=== PATIENT | female | born 1970 | race Caucasian/White ===

== ENCOUNTER 2016-07-15 16:12 | Emergency (ER) | payer OTHER ==
[~2016-07-15] VITALS: Ht 160 cm; Wt 77.1 kg
[~2016-07-15 16:12] MED LIST: BENZONATATE200 MG PO; BUPROPION HYDR150 M1 PO; CEPHALEXIN500 MG PO; CITALOPRAM HYDR20 MG PO; SUBOXONE 8 MG-21 TAB PO; ZOLPIDEM TARTRA10 MG PO
--- NOTE | 2016-07-15 16:45 | ED HAND/WRIST INJURY COMPLAINT ---
History of Present Illness General Chief Complaint: Upper Extremity Injury Stated Complaint: RT ARM PAIN Source: patient Exam Limitations: no limitations Vital Signs & Intake/Output Vital Signs & Intake/Output Vital Signs Date Time Temp Pulse Resp B/P Pulse O2 O2 Flow FiO2 Ox Delivery Rate 07/15 1913 98.0 82 16 118/72 07/15 1802 Room Air 07/15 1622 98.0 07/15 1616 98.0 83 16 130/87 98 Room Air Allergies Coded Allergies: Sulfa (Sulfonamide Antibiotics) (HIVES 07/15/16) naproxen (From ANAPROX) (HIVES, DYSPNEA 07/15/16) Reconcile Medications Citalopram Hydrobromide (Citalopram HBr) 20 MG TAB 1 TAB PO DAILY ANXIETY ( Reported) Eszopiclone (Lunesta) 2 MG TABLET 1 TAB PO QPM SLEEP (Reported) Ibuprofen 800 MG TABLET 1 TAB PO TID pain Triage Note: PT STATES HER RIGHT ARM GOT CAUGHT BETWEEN A WOODEN RABBIT CAGE AND THE RAILING OF THEIR DECK. PT HAS PAIN AND SWELLING. PT HAS ICE PACK TO AREA. Triage Nurses Notes Reviewed? yes Occurred: just prior to arrival Duration: hour(s):, constant, continues in ED Timing: recent history Injury Environment: home Severity: moderate, severe Pain/Injury Location: Right: Wrist. No Modifying Factors: none : No Patient currently breastfeeds: No HPI: 46-year-old female comes into emergency room with complaints of right wrist pain. Symptoms of a going on for the past few hours. Sharp throbbing pain. Wrist caught between the deck in a cage when they were lifting it. Associated swelling. Denies any injury anywhere else. Denies any other associated symptoms. (DOLORES CHING) Past History Travel History Traveled to [place] past 21 day No Medical History Any Pertinent Medical History? 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 No (DOLORES CHING) Review of Systems Review of Systems Constitutional: Reports: no symptoms. EENTM: Reports: no symptoms. Respiratory: Reports: no symptoms. Cardiovascular: Reports: no symptoms. GI: Reports: no symptoms. Genitourinary: Reports: no symptoms. Musculoskeletal: Reports: see HPI. Skin: Reports: no symptoms. Neurological/Psychological: Reports: no symptoms. Hematologic/Endocrine: Reports: no symptoms. Immunologic/Allergic: Reports: no symptoms. All Other Systems: Reviewed and Negative (DOLORES CHING) Physical Exam Physical Exam General Appearance: well developed/nourished Head: atraumatic Eyes: Bilateral: normal appearance. Ears, Nose, Throat: normal ENT inspection, hearing grossly normal Neck: normal inspection Cardiovascular/Respiratory: no respiratory distress Back: normal inspection Wrist Right: bone tenderness, limited range of motion Hand Left: normal inspection Hand Right: normal inspection, normal range of motion Neurologic/Tendon: normal sensation, normal motor functions, normal tendon functions Skin: intact, normal color, warm/dry Lymphatic: no anterior cervical zac (DOLORES CHING) Progress Differential Diagnosis: dislocation, fracture, paronychia, septic arthritis, sprain, tenosynovitis Plan of Care: Orders Procedure Date/time Status Durable Medical Equipment 07/15 1904 Active Diagnostic Imaging: Viewed by Me: Radiology Read. Discussed w/RAD: Radiology Read. Radiology Impression: EXAM TYPE: RAD - XRY-FOREARM, RIGHT EXAMINATION: XR FOREARM, RIGHT CLINICAL INFORMATION: Recent injury, pain and swelling COMPARISON : None TECHNIQUE: AP and lateral views of the right forearm were obtained. FINDINGS: There is a transverse lucent line through the distal ulnar styloid process with adjacent soft tissue swelling. This could represent a nondisplaced acute fracture. No other acute fractures seen. No radiodense foreign body. IMPRESSION: Possible linear nondisplaced fracture of distal ulnar styloid process. Clinical correlation is advised., SERVICE DATE: 07/15/16 EXAM TYPE: RAD - XRY-WRIST COMPLETE-RIGHT EXAMINATION: XR WRIST, RIGHT CLINICAL INFORMATION: Pain. Assess for fracture COMPARISON: None TECHNIQUE: 4 of the right wrist. FINDINGS: The bones and soft tissues are normal. No fracture. There is high-grade subluxation/dislocation of the distal radioulnar joint. Correlate clinically.. No erosions or abnormal soft tissue calcifications. IMPRESSION: No fracture. Disruption of the distal radial ulnar joint uncertain chronicity. Correlate clinically. DICTATED BY: DANA COBB MD DATE/TIME DICTATED:07/15/161748 LOAN ADVISER:DERRICK DATE/TIME TRANSCRIBED:07/15/161748 CONFIDENTIAL, DO NOT COPY WITHOUT APPROPRIATE AUTHORIZA, EXAM TYPE: RAD - XRY- ELBOW 3 OR MORE VIEWS, R EXAMINATION: XR ELBOW, RIGHT CLINICAL INFORMATION: Pain. COMPARISON: None TECHNIQUE: 4 of the right elbow. FINDINGS: No effusion. Radial head intact. Alignment is anatomic. Joint spaces are maintained. IMPRESSION: No fracture or dislocation. (DOLORES CHING) Departure Departure Disposition: HOME OR SELF CARE Condition: Stable Clinical Impression Primary Impression: Right wrist sprain Referrals: TY GRANGER,RAZ Sommers (PCP/Family) [facility] CABRAL MD Additional Instructions: Ice. Rest. Motrin for pain. Elevation. Follow-up with orthopedic doctor provided if not better in 3-5 days. If symptoms do not improve you'll require further evaluation with possible repeat x-rays as well as evaluation by refractory specialist. Sprains can last anywhere from days to weeks. Return to normal activity only after symptoms have resolved. Departure Forms: Customer Survey General Discharge Information Prescriptions: Current Visit Scripts Ibuprofen 1 TAB PO TID #30 TAB (DOLORES CHING) PA/CONSTRUCTION TECHNOLOGY INSTRUCTOR Co-Sign Statement Statement: ED Attending supervision documentation- [] I saw and evaluated the patient. I have also reviewed all the pertinent lab results and diagnostic results. I agree with the findings and the plan of care as documented in the PA's/CONSTRUCTION TECHNOLOGY INSTRUCTOR's documentation. x I have reviewed the ED Record and agree with the PA's/CONSTRUCTION TECHNOLOGY INSTRUCTOR's documentation. [] Additions or exceptions (if any) to the PAs/CONSTRUCTION TECHNOLOGY INSTRUCTOR's note and plan are summarized below: [] (NADJA GRANGER,HUE) Procedures Splinting Location: right wrist/shoulder Manual Alignment Performed: No Pre-Made Type: shoulder immobilizer Hand-Made Type: orthoglass Splint: sugar-tong Splint Applied By: splint applied by me Pre-Proc Neuro Vasc Exam: normal Post-Proc Neuro Vasc Exam: normal (DOLORES CHING)
--- NOTE | 2016-07-15 16:50 | RADIOLOGY REPORT ---
EXAMINATION: XR FOREARM, RIGHT CLINICAL INFORMATION: Recent injury, pain and swelling COMPARISON: None TECHNIQUE: AP and lateral views of the right forearm were obtained. FINDINGS: There is a transverse lucent line through the distal ulnar styloid process with adjacent soft tissue swelling. This could represent a nondisplaced acute fracture. No other acute fractures seen. No radiodense foreign body. IMPRESSION: Possible linear nondisplaced fracture of distal ulnar styloid process. Clinical correlation is advised.
[2016-07-15] MEDS ORDERED: LUNESTA2 M1 PO (16:59)
--- NOTE | 2016-07-15 17:54 | RADIOLOGY REPORT ---
EXAMINATION: XR WRIST, RIGHT CLINICAL INFORMATION: Pain. Assess for fracture COMPARISON: None TECHNIQUE: 4 of the right wrist. FINDINGS: The bones and soft tissues are normal. No fracture. There is high-grade subluxation/dislocation of the distal radioulnar joint. Correlate clinically.. No erosions or abnormal soft tissue calcifications. IMPRESSION: No fracture. Disruption of the distal radial ulnar joint uncertain chronicity. Correlate clinically.
--- NOTE | 2016-07-15 18:39 | RADIOLOGY REPORT ---
EXAMINATION: XR ELBOW, RIGHT CLINICAL INFORMATION: Pain. COMPARISON: None TECHNIQUE: 4 of the right elbow. FINDINGS: No effusion. Radial head intact. Alignment is anatomic. Joint spaces are maintained. IMPRESSION: No fracture or dislocation.
[2016-07-15] MEDS ORDERED: IBUPROFEN800 M1 PO (19:05)
[2016-07-15 19:13] VITALS: BP 118/72
== END 2016-07-15 19:16 ==
LOC: ERH 16:12
DX: S63.501A Unspecified sprain of right wrist, initial encounter (principal); X58.XXXA Exposure to other specified factors, initial encounter
CPT/HCPCS: 73080-RT; 73090-RT; 73110-RT